=== PATIENT | female | born 1990 | race Caucasian/White ===

== ENCOUNTER 2020-01-11 13:50 | Emergency (ER) | payer MEDICAID ==
[2020-01-11] MEDS ORDERED: DOXYLAMINE 25 MG TABLET PO STA (14:16)
[2020-01-11] MEDS ORDERED: PYRIDOXINE 100 MG TABLET PO STA (14:16)
[2020-01-11] MEDS ORDERED: SODIUM CHLORIDE 0.9% 1,000 ML IV STA ×2 (14:16→15:45)
--- NOTE | 2020-01-11 14:19 | ED Physician Documentation ---
PD HPI FEMALE - Stated complaint Stated Complaint: EMESIS - Chief complaint Chief Complaint: Abd Pain - History obtained from History obtained from: Patient - History of Present Illness Timing - onset: Yesterday Timing - duration: Days (1) Timing - details: Gradual onset, Still present Associated symptoms: Abdominal pain. No: Fever, Chest/shoulder pain Contributing factors: Similar symptoms before: Diagnosis (morning sickness) Recently seen: Clinic - Additional information Additional information: 29 y/ female at 12wks has developed nausea, vomiting and diarrhea beginning yesterday and she feels dehydrated. Review of Systems Constitutional: denies: Fever Eyes: denies: Photophobia Ears: denies: Loss of hearing Nose: denies: Congestion Throat: denies: Sore throat Cardiac: denies: Chest pain / pressure, Palpitations Respiratory: denies: Dyspnea, Cough GI: reports: Abdominal Pain, Nausea, Vomiting, Diarrhea : denies: Dysuria, Frequency PD PAST MEDICAL HISTORY - Present Medications Home Medications: Ambulatory Orders Medication Instructions Recorded Confirmed Ondansetron Odt [Zofran] 4 mg TL Q6H PRN #10 tablet 01/11/20 - Allergies Allergies/Adverse Reactions: Allergies Allergy/AdvReac Type Severity Reaction Status Date / Time No Known Drug Allergies Allergy Verified 01/11/20 14:02 PD ED PE NORMAL - Vitals Vital signs reviewed: Yes (normal ) - General General: Alert and oriented X 3, No acute distress, Well developed/nourished - HEENT HEENT: Atraumatic, PERRL, EOMI - Neck Neck: Supple, no meningeal sign - Cardiac Cardiac: RRR, No murmur - Respiratory Respiratory: No respiratory distress, Clear bilaterally - Abdomen Abdomen: Normal bowel sounds, Soft, Non tender, Non distended, No organomegaly - Back Back: No CVA TTP, No spinal TTP - Derm Derm: Normal color, Warm and dry, No rash - Extremities Extremities: No deformity, No edema - Neuro Neuro: Alert and oriented X 3, dental hygiene teacher 2-12 intact, No motor deficit, No sensory deficit, Normal speech Eye Opening: Spontaneous Motor: Obeys Commands Verbal: Oriented GCS Score: 15 - Psych Psych: Normal mood, Normal affect Results - Vitals Vitals: Vital Signs - 24 hr 01/11/20 01/11/20 01/11/20 13:59 14:38 15:49 Temperature 36.1 C L 36.6 C 37.1 C Heart Rate 75 66 91 Respiratory 20 16 16 Rate Blood Pressure 124/67 121/72 93/54 L O2 Saturation 99 100 99 Oxygen O2 Source Room air - Labs Labs: Laboratory Tests 01/11/20 01/11/20 01/11/20 14:20 14:20 16:30 WBC 11.1 H RBC 4.63 Hgb 14.1 Hct 40.4 MCV 87.3 MCH 30.5 MCHC 34.9 RDW 12.6 Plt Count 255 MPV 9.5 Neut # (Auto) 10.1 H Lymph # (Auto) 0.8 L [place] # (Auto) 0.2 Eos # (Auto) 0.0 Baso # (Auto) 0.0 Absolute Nucleated RBC 0.00 Nucleated RBC % 0.0 Sodium 136 Potassium 3.0 L Chloride 101 Carbon Dioxide 21 Anion Gap 14.0 H BUN 11 Creatinine 0.6 Estimated GFR (MDRD) 117 Glucose 91 Calcium 9.4 Total Bilirubin 1.7 H AST 30 ALT 24 Alkaline Phosphatase 41 L Total Protein 8.1 Albumin 4.8 Globulin 3.3 Albumin/Globulin Ratio 1.5 Lipase 29 Urine Color YELLOW Urine Clarity CLEAR Urine pH 6.0 Ur Specific [place] >=1.030 H Urine Protein NEGATIVE Urine Glucose (UA) NEGATIVE Urine Ketones >=80 H Urine Occult Blood NEGATIVE Urine Nitrite NEGATIVE Urine Bilirubin NEGATIVE Urine Urobilinogen 0.2 (NORMAL) Ur Leukocyte Esterase NEGATIVE Ur Microscopic Review NOT INDICATED Urine Culture Comments NOT INDICATED Procedures - Bedside sono Bedside sono by EMP: With use of bedside ultrasound the fetus is imaged with a biparietal diameter indicating a age of 12 weeks 1 day and a heart rate of 156 bpm. - IVC sono (time) 1412 Bedside IVC sono: IVC measures (cm) (1.22), IVC collapsed c insp (cm) (co mplete), Dehydration (est 1 liter deficit) PD MEDICAL DECISION MAKING - ED course Complexity details: reviewed results, re-evaluated patient, considered differential, d/w patient ED course: 29-year-old female 12 weeks has nausea and vomiting is dehydrated she is administered saline and pyridoxine and doxylamine.Patient requires 2 L of saline to get urine urine shows a concentrated specimen with ketones and she is continuing to be nauseated even with the pyridoxine and doxylamine. She is administered Zofran 4 mg intravenously. Departure - Departure Disposition: 01 Home, Self Care Clinical Impression: Hyperemesis gravidarum Condition: Stable Instructions: ED Preg Morning Sickness Follow-Up: [facility] [Provider Group] Prescriptions: Ondansetron Odt [Zofran] 4 mg TL Q6H PRN #10 tablet PRN Reason: Nausea / Vomiting
[2020-01-11 14:33] LABS: BASOPHILS % (AUTO) 0.2 %; HGB - HEMOGLOBIN 14.1 g/dL (12.0-16.0); LYMPHOCYTES # (AUTO) 0.8 10^3/uL (1.5-3.5); LYMPHOCYTES % (AUTO) 6.7 %; MEAN CORPUSCULAR HEMOGLOBIN 30.5 pg (27.0-31.0); MEAN CORPUSCULAR HGB CONC 34.9 g/dL (32.0-36.0); MEAN CORPUSCULAR VOLUME 87.3 fL (81.0-99.0); MEAN PLATELET VOLUME 9.5 fL (7.9-10.8); MONOCYTES # (AUTO) 0.2 10^3/uL (0.0-1.0); NEUTROPHILS # (AUTO) 10.1 10^3/uL (1.5-6.6); NEUTROPHILS % (AUTO) 90.7 %; PLT - PLATELET COUNT 255 10^3/uL (130-450); RED BLOOD COUNT 4.63 10^6/uL (4.20-5.40); RED CELL DISTRIBUTION WIDTH 12.6 % (12.0-15.0); WHITE BLOOD COUNT 11.1 x10^3/uL (4.8-10.8)
[2020-01-11 14:51] LABS: ALBUMIN 4.8 g/dL (3.2-5.5); ALBUMIN/GLOBULIN RATIO 1.5 (1.0-2.2); BILIRUBIN,TOTAL 1.7 mg/dL (0.2-1.0); CALCIUM 9.4 mg/dL (8.5-10.3); CREATININE 0.6 mg/dL (0.4-1.0); TOTAL PROTEIN 8.1 g/dL (6.7-8.2)
[2020-01-11 16:46] LABS: BILIRUBIN,URINE NEGATIVE (NEGATIVE); GLUCOSE, URINE (UA) NEGATIVE (NEGATIVE); KETONES,URINE (UA) >=80 mg/dL (NEGATIVE); LEUKOCYTE ESTERASE, URINE NEGATIVE (NEGATIVE); NITRITE,URINE NEGATIVE (NEGATIVE); OCCULT BLOOD,URINE NEGATIVE (NEGATIVE); PROTEIN,URINE NEGATIVE (NEGATIVE); UROBILINOGEN,URINE 0.2 (NORMAL) E.U./dL (NORMAL)
[2020-01-11 16:51] LABS: CLARITY,URINE CLEAR (CLEAR)
[2020-01-11] MEDS ORDERED: POTASSIUM CHLORIDE 20 MEQ TABLET PO STA (16:58)
[2020-01-11] MEDS ORDERED: ONDANSETRON 4 MG/2 ML VIAL IVP STA (16:58)
[2020-01-11 17:46] VITALS: BP 125/61
== END 2020-01-11 18:01 | disposition home or self-care (01) ==
LOC: ED 13:50
DX: O21.1 Hyperemesis gravidarum with metabolic disturbance (principal); Z3A.12 12 weeks gestation of pregnancy
CPT/HCPCS: 36415; 80053; 81003; 83690; 85025; 96361; 96374; 99283; 99284; A9270; 81001; 87086

== ENCOUNTER 2022-05-18 12:53 | Emergency (ER) | payer MEDICAID ==
[2022-05-18 13:24] LABS: BASOPHILS % (AUTO) 0.3 %; HCT - HEMATOCRIT 45.7 % (37.0-47.0); LYMPHOCYTES # (AUTO) 0.2 10^3/uL (1.5-3.5); LYMPHOCYTES % (AUTO) 1.6 %; MEAN CORPUSCULAR HEMOGLOBIN 29.1 pg (27.0-31.0); MEAN CORPUSCULAR HGB CONC 32.8 g/dL (32.0-36.0); MEAN CORPUSCULAR VOLUME 88.6 fL (81.0-99.0); MEAN PLATELET VOLUME 9.5 fL (7.9-10.8); MONOCYTES # (AUTO) 0.4 10^3/uL (0.0-1.0); MONOCYTES % (AUTO) 2.8 %; NEUTROPHILS # (AUTO) 13.7 10^3/uL (1.5-6.6); PLT - PLATELET COUNT 239 10^3/uL (130-450); RED BLOOD COUNT 5.16 10^6/uL (4.20-5.40); RED CELL DISTRIBUTION WIDTH 12.4 % (12.0-15.0); WHITE BLOOD COUNT 14.4 x10^3/uL (4.8-10.8)
[2022-05-18 13:36] LABS: ALBUMIN 4.4 g/dL (3.2-5.5); ALBUMIN/GLOBULIN RATIO 1.4 (1.0-2.2); BILIRUBIN,TOTAL 1.2 mg/dL (0.2-1.0); CREATININE 0.8 mg/dL (0.4-1.0); POTASSIUM 3.9 mmol/L (3.5-5.0); TOTAL PROTEIN 7.6 g/dL (6.7-8.2)
[2022-05-18] MEDS ORDERED: ONDANSETRON 4 MG/2 ML VIAL IVP STA (15:35)
[2022-05-18] MEDS ORDERED: SODIUM CHLORIDE 0.9% 1,000 ML IV STA (15:35)
--- NOTE | 2022-05-18 15:43 | ED Physician Documentation ---
History of Present Illness - Stated complaint Stated Complaint: VOMITING - Chief complaint Chief Complaint: Abd Pain - History obtained from History obtained from: Patient - Additonal information Additional information: The patient comes to the emergency department for chief complaint of vomiting. She states that she has been sick since about midnight and that the rest of her family has had the same symptoms over the last several days. She states that she is mainly here because her made her come, because she kept drinking water to give herself something to vomit instead of dry heaving. The patient denies any fevers. She has had chills. She states her whole abdomen is sore from vomiting so much. No diarrhea. No respiratory symptoms PD PAST MEDICAL HISTORY - Present Medications Home Medications: Ambulatory Orders Medication Instructions Recorded Confirmed Ondansetron Odt [Zofran] 4 mg TL Q6H PRN #10 tablet 01/11/20 Ondansetron Odt [Zofran] 4 mg TL Q6H PRN #10 tablet 05/18/22 - Allergies Allergies/Adverse Reactions: Allergies Allergy/AdvReac Type Severity Reaction Status Date / Time No Known Drug Allergies Allergy Verified 05/18/22 13:11 - Social History Does the pt smoke?: No Smoking Status: Never smoker Does the pt drink ETOH?: No Does the pt have substance abuse?: No - Immunizations Immunizations are current?: Yes PD ED PE NORMAL - Vitals Vital signs reviewed: Yes - General General: Alert and oriented X 3, No acute distress, Well developed/nourished - HEENT HEENT: Atraumatic, PERRL, EOMI, Moist mucous membranes - Neck Neck: Supple, no meningeal sign - Cardiac Cardiac: RRR, No murmur - Respiratory Respiratory: No respiratory distress, Clear bilaterally - Abdomen Abdomen: Soft, Non tender, Non distended - Derm Derm: Normal color, Warm and dry, No rash - Extremities Extremities: No deformity, No edema - Neuro Neuro: Alert and oriented X 3 - Psych Psych: Normal mood, Normal affect Results - Vitals Vitals: Vital Signs - 24 hr 05/18/22 05/18/22 13:07 16:34 Temperature 36.3 C L Heart Rate 92 89 Respiratory 16 18 Rate Blood Pressure 133/85 H 124/61 O2 Saturation 99 98 Oxygen O2 Source Room air - Labs Labs: Laboratory Tests 05/18/22 05/18/22 13:19 13:19 WBC 14.4 H RBC 5.16 Hgb 15.0 Hct 45.7 MCV 88.6 MCH 29.1 MCHC 32.8 RDW 12.4 Plt Count 239 MPV 9.5 Neut # (Auto) 13.7 H Lymph # (Auto) 0.2 L [place] # (Auto) 0.4 Eos # (Auto) 0.0 Baso # (Auto) 0.0 Absolute Nucleated RBC 0.00 Nucleated RBC % 0.0 Sodium 141 Potassium 3.9 Chloride 109 Carbon Dioxide 23 Anion Gap 9.0 BUN 20 Creatinine 0.8 Estimated GFR (MDRD) 82 L Glucose 147 H Calcium 9.0 Total Bilirubin 1.2 H AST 18 ALT 22 Alkaline Phosphatase 66 Total Protein 7.6 Albumin 4.4 Globulin 3.2 Albumin/Globulin Ratio 1.4 Lipase 35 PD Medical Decision Making - ED course Complexity details: reviewed results, re-evaluated patient, considered differential, d/w patient ED course: Patient mainly felt that she needed some IV fluids. We did do laboratory studies on her which I ordered and reviewed, in both the CBC and the ER abdominal panel were unremarkable, except for a mildly elevated white blood cell count. The patient was given a liter of normal saline via IV, as well as Zofran. We have discussed home management of her symptoms, as well as usual indications for return. She has been given a prescription for Zofran for home. Departure - Departure Disposition: 01 Home, Self Care Clinical Impression: Gastroenteritis Condition: Stable Instructions: ED Gastroenteritis Viral Prescriptions: Ondansetron Odt [Zofran] 4 mg TL Q6H PRN #10 tablet PRN Reason: Nausea / Vomiting Comments: Your prescription for nausea medicine has been electronically transmitted to the [facility] pharmacy in [place] at your request. Please try to avoid taking anything by mouth when you are very nauseated. In fact, you should give your stomach a rest for the next 6 to 8 hours and do not take anything during that time. After that, you may take a sip or 2 of water and then wait for 15 or 20 minutes to make sure this stays down. If it does, he may take another couple sips of water and wait again. When she were solidly able to tolerate that, you may begin shorten the distance between sips of water. For best results, take nausea medication 30 to 60 minutes before you for start drinking water. You may take it every 6 hours after that. When she is able to tolerate clear liquids for 24 hours without vomiting, you may advance your diet as tolerated. You should start with simple starches such as Ramen noodles or saltine crackers, and increase complexity from there.
[2022-05-18 16:34] VITALS: BP 124/61
== END 2022-05-18 17:03 | disposition home or self-care (01) ==
LOC: ED 12:53
DX: K52.9 Noninfective gastroenteritis and colitis, unspecified (principal)
CPT/HCPCS: 36415; 80053; 83690; 85025; 96361; 96374; 99283